=== PATIENT | female | born 1960 | race Caucasian/White ===

== ENCOUNTER → 2023-06-19 07:37 | Outpatient (REF) | payer BC, SELFPAY | LOC: WDC 07:37 | PROVIDERS: ATTENDING PHYSICIAN Family Medicine | DX: Z12.31 Encounter for screening mammogram for malignant neoplasm of breast (principal) | CPT/HCPCS: 77063; 77067 ==

== ENCOUNTER → 2023-07-10 08:13 | Outpatient (REF) | payer BC, SELFPAY | LOC: RAD 08:13 | PROVIDERS: ATTENDING PHYSICIAN Family Medicine | DX: Z78.0 Asymptomatic menopausal state (principal); Z13.820 Encounter for screening for osteoporosis | CPT/HCPCS: 77080 ==

== ENCOUNTER → 2023-09-18 07:04 | Outpatient (REF) | payer BC, SELFPAY ==
[2023-09-18 08:15] LABS: ALT (SGPT) 26 U/L (0-35); AST (SGOT) 35 U/L (14-36); Albumin 3.9 g/dl (3.5-5.0); Alkaline Phosphatase 76 U/L (38-126); Blood Urea Nitrogen 26 mg/dl (7-17); Calcium 9.8 mg/dl (8.4-10.2); Carbon Dioxide 28 mmol/L (22-30); Chloride 105 mmol/L (98-107); Glucose 89 mg/dl (70-99); Potassium 4.5 mmol/L (3.5-5.1); Sodium 138 mmol/L (135-145); Total Bilirubin 0.6 mg/dl (0.2-1.3); Total Cholesterol 189 mg/dl (50-199); Total Protein 6.7 g/dl (6.3-8.2); Triglyceride 44 mg/dl (10-149); Very Low Density Lipoprotein 8 mg/dl (0-30); eGFR > 60.00
[2023-09-18 08:29] LABS: HDL Cholesterol 118 mg/dl; LDL Cholesterol, Calculated 63 mg/dl
== END ==
LOC: REG 07:04
PROVIDERS: ATTENDING PHYSICIAN Family Medicine
DX: R73.9 Hyperglycemia, unspecified (principal); R73.09 Other abnormal glucose
CPT/HCPCS: 36415; 80053; 80061; 83036

== ENCOUNTER → 2023-09-23 13:45 | Outpatient (REF) | payer BC, SELFPAY | LOC: CPAP 13:45 | PROVIDERS: ATTENDING PHYSICIAN Nurse Practitioner Family | DX: Z12.4 Encounter for screening for malignant neoplasm of cervix (principal); Z11.51 Encounter for screening for human papillomavirus (HPV); Z01.419 Encounter for gynecological examination (general) (routine) without abnormal findings | CPT/HCPCS: 87624; G0123 ==

== ENCOUNTER → 2024-01-13 14:04 | Outpatient (REF) | payer BC, SELFPAY ==
[2024-01-19 02:41] LABS: HPV, High Risk Not Detected; HPV, High Risk Source Cervical
== END ==
LOC: CPAP 14:04
PROVIDERS: ATTENDING PHYSICIAN Nurse Practitioner Family
DX: Z01.419 Encounter for gynecological examination (general) (routine) without abnormal findings (principal)
CPT/HCPCS: 87624

== ENCOUNTER → 2024-03-12 07:32 | Outpatient (REF) | payer BC, SELFPAY ==
[2024-03-12 10:00] LABS: Urine Albumin Negative (Neg - Trace); Urine Bilirubin Negative (Negative); Urine Glucose Negative (Negative); Urine Ketone Trace (Negative); Urine Leukocyte Negative (Negative); Urine Nitrite Negative (Negative); Urine Occult Blood Negative (Negative); Urine Urobilinogen Negative (Neg - 1+)
[2024-03-12 10:01] LABS: Urine Character Clear (Clear); Urine Color Yellow
[2024-03-12 10:11] LABS: Hematocrit 41.3 % (37.0-47.0); Hemoglobin 13.8 g/dL (12.0-16.0); Mean Corp Hgb Conc. 33.4 g/dL (33.0-37.0); Mean Corpuscular Hgb 30.9 pg (27.0-31.0); Mean Corpuscular Volume 92.6 fL (81.0-99.0); Mean Platelet Volume 9.9 fL (7.4-10.4); Platelet Count 191 10^3/uL (130-400); Red Blood Cell Count 4.46 10^6/uL (4.20-5.40); Red Cell Dist. Width 12.1 % (11.5-14.5)
[2024-03-12 10:55] LABS: Erythrocyte Sed Rate 19 mm/hour (0-20)
[2024-03-12 11:26] LABS: Absolute Lymphocytes 0.9 10^3/uL (1.2-3.4); Absolute Monocytes 0.2 10^3/uL (0.1-0.6); Absolute Neutrophils 0.9 10^3/uL (1.4-6.5); Nucleated Red Blood Cells % 0 %
[2024-03-12 11:46] LABS: ALT (SGPT) 30 U/L (0-35); AST (SGOT) 34 U/L (14-36); Albumin 4.5 g/dl (3.5-5.0); Alkaline Phosphatase 81 U/L (38-126); Blood Urea Nitrogen 27 mg/dl (7-17); Calcium 9.7 mg/dl (8.4-10.2); Carbon Dioxide 27 mmol/L (22-30); Chloride 102 mmol/L (98-107); Glucose 81 mg/dl (70-99); Potassium 4.6 mmol/L (3.5-5.1); Sodium 140 mmol/L (135-145); Total Bilirubin 0.5 mg/dl (0.2-1.3); Total Cholesterol 236 mg/dl (50-199); Total Protein 7.4 g/dl (6.3-8.2); Triglyceride 48 mg/dl (10-149); Uric Acid 3.8 mg/dl (2.5-6.2); Very Low Density Lipoprotein 9 mg/dl (0-30); eGFR > 60.00
[2024-03-12 11:56] LABS: C-Reactive Protein < 5.00 mg/L (0.0-10.00)
[2024-03-12 12:03] LABS: HDL Cholesterol 133 mg/dl; LDL Cholesterol, Calculated 94 mg/dl
[2024-03-12 12:14] LABS: Free T4 0.89 ng/dl (0.78-2.19); Vitamin D, 25-OH*** 39.7 ng/mL (30-80)
[2024-03-12 12:18] LABS: Glycohemoglobin (HgbA1c) 5.4 % (4.0-5.6)
[2024-03-12 12:27] LABS: TSH 1.87 uIU/ml (0.47-4.68)
[2024-03-12 13:28] LABS: IgA 244 mg/dl (70-400); IgG 1318 mg/dl (700-1600); IgM 118 mg/dl (40-230)
[2024-03-12 19:52] LABS: Hepatitis B Surface Antigen Negative (Negative)
[2024-03-12 20:09] LABS: Hepatitis B Surface Antibody Positive
[2024-03-12 20:56] LABS: Hepatitis B Core Ab, IgM Negative (Negative)
[2024-03-13 09:46] LABS: CRP, Highly Sensitive < 0.34 mg/L
[2024-03-13 23:14] LABS: Apolipoprotein B 78 mg/dL (60-117)
[2024-03-14 00:55] LABS: ANA, IgG Reflex to HEp-2 None Detected (None Detected)
== END ==
LOC: REG 07:32
PROVIDERS: ATTENDING PHYSICIAN Family Medicine
DX: Z00.00 Encounter for general adult medical examination without abnormal findings (principal); M06.9 Rheumatoid arthritis, unspecified; K21.9 Gastro-esophageal reflux disease without esophagitis; R73.9 Hyperglycemia, unspecified; E55.9 Vitamin D deficiency, unspecified; Z11.59 Encounter for screening for other viral diseases; D72.819 Decreased white blood cell count, unspecified
CPT/HCPCS: 36415; 80053; 80061; 81003; 82172; 82306; 82784; 83036; 84439; 84443; 84550; 85025; 85652; 86038; 86140; 86141; 86430; 86705; 86706; 87340

== ENCOUNTER → 2024-05-04 06:47 | Outpatient (REF) | payer BC, SELFPAY ==
[2024-05-04 09:03] LABS: Mean Corp Hgb Conc. 33.3 g/dL (33.0-37.0); Mean Corpuscular Hgb 30.4 pg (27.0-31.0); Mean Corpuscular Volume 91.1 fL (81.0-99.0); Mean Platelet Volume 9.8 fL (7.4-10.4); Platelet Count 202 10^3/uL (130-400); Red Blood Cell Count 4.28 10^6/uL (4.20-5.40); Red Cell Dist. Width 12.1 % (11.5-14.5)
[2024-05-04 10:34] LABS: % Basophils 0.9 % (0-2); % Eosinophils 1.8 % (0-6); % Lymphocytes 45.8 % (20.5-51.1); % Monocytes 8.4 % (1.7-9.3); % Neutrophils 43.1 % (42.2-75.2); Absolute Monocytes 0.2 10^3/uL (0.1-0.6); Nucleated Red Blood Cells % 0 %; White Blood Cell Count 2.3 10^3/uL (4.8-10.8)
[2024-05-05 13:28] LABS: Lipoprotein a (Lp a) 8 mg/dL (<=29)
[2024-05-05 13:30] LABS: Apolipoprotein B 71 mg/dL (60-117)
== END ==
LOC: REG 06:47
PROVIDERS: ATTENDING PHYSICIAN Family Medicine
DX: K21.9 Gastro-esophageal reflux disease without esophagitis (principal); R73.9 Hyperglycemia, unspecified; R73.09 Other abnormal glucose
CPT/HCPCS: 36415; 82172; 83695; 85025

== ENCOUNTER 2025-01-25 18:40 | Emergency (ER) | payer BC, SELFPAY ==
[2025-01-25 18:49] VITALS: BP 124/65
[2025-01-25 19:31] LABS: Hematocrit 35.7 % (37.0-47.0); Hemoglobin 12.2 g/dL (12.0-16.0); Mean Corp Hgb Conc. 34.2 g/dL (33.0-37.0); Mean Corpuscular Volume 87.9 fL (81.0-99.0); Nucleated Red Blood Cells % 0 %; Platelet Count 144 10^3/uL (130-400); Red Cell Dist. Width 12.2 % (11.5-14.5)
[2025-01-25 19:46] LABS: ALT (SGPT) 47 U/L (0-35); AST (SGOT) 48 U/L (14-36); Albumin 3.8 g/dl (3.5-5.0); Alkaline Phosphatase 68 U/L (38-126); Blood Urea Nitrogen 25 mg/dl (7-17); Calcium 8.9 mg/dl (8.4-10.2); Carbon Dioxide 26 mmol/L (22-30); Chloride 103 mmol/L (98-107); Glucose 105 mg/dl (70-99); Potassium 4.1 mmol/L (3.5-5.1); Sodium 131 mmol/L (135-145); Total Protein 6.6 g/dl (6.3-8.2); eGFR > 60.00
[2025-01-25 20:22] VITALS: BMI 16.2
[2025-01-25] MEDS: VANCOCIN 200 IV (20:48)
--- NOTE | 2025-01-25 20:50 | ED.GENMED ---
History of Present Illness
<Boaz Castanon DO - Last Filed: 01/25/25 20:51>
General
Chief Complaint: Skin Problem
Source: patient
Time Seen by Provider: 01/25/25 18:49
<Alanna Rose NP - Last Filed: 01/26/25 19:18>
General
Exam Limitations: none
Nursing documentation reviewed up to this point in time: agreed with
History of Present Illness
History of Present Illness:
Patient states she was bit by unknown insect on . Bite to right medial ankle. No issues until Saturday when she developed worsening erythema. Today erythema continued to spread. Reports pain to ankle, fever. She was evaluated at but
advised to come to ED for eval.
Past History
<Boaz Castanon DO - Last Filed: 01/25/25 20:51>
Past History
ED Past Medical History: Other (hypoglycemia)
ED Past Surgical History:
Social History
Tobacco: Non-smoker
Alcohol: None
Drug: None
Personal:
Living: with family
Employment: Employed (RN at [employer])
Family History
Family History: Other (Noncontributory)
Review of Systems
<Alanna Rose [employer] - Last Filed: 01/26/25 19:18>
Review of Systems
Allergies reviewed?: Yes
All Other Systems: ROS reviewed and negative except as documented in HPI and ROS
Constitutional: Reports fever
Respiratory: Reports no symptoms
Cardiac: Reports no symptoms
ABD/GI: Reports no symptoms
Musculoskeletal: Reports joint pain (Pain to right ankle)
Skin: Reports other (erythema to right ankle)
Neurological: Reports no symptoms
Psychiatric: Reports no symptoms
Phy Exam
<Alanna Rose [employer] - Last Filed: 01/26/25 19:18>
General Physical Exam
General Presentation: well appearing and mild distress
General age: appears stated age
General Skin: warm and dry
General Habitus: normal
General Mental: alert
Musculoskeletal Exam
Musculoskeletal Exam: full ROM and neuro vasc intact
Skin Exam
Skin Exam: warm/dry and no rash
Psychiatric Exam
Psychiatric Exam: normal mood/affect
Course
<Boaz Castanon, DO - Last Filed: 01/25/25 20:51>
Orders/Labs/Results
Orders:
Orders
01/25/25 18:52
Ankle, Right 3 view CR [CR Ankle - Right Min 3 Views *] Urgent
Comment:
Reason For Exam: pain redness swelling
01/25/25 19:23
Complete Blood Count/With Diff Urgent
Comprehensive Metabolic Panel Urgent
Lactic Acid Urgent
01/25/25 20:27
Vancomycin 1 Gram/200 ml [Vancocin] 1 gram in 200 ml IV NOW
01/25/25 20:54
Lyme Progressive Urgent
Abnormal Lab Results
01/25/25
19:23
WBC 2.5 L 10^3/uL
(4.8-10.8)
RBC 4.06 L 10^6/uL
(4.20-5.40)
Hct 35.7 L %
(37.0-47.0)
Absolute Lymphs (auto) 0.5 L 10^3/uL
(1.2-3.4)
Monocytes % 11.4 H %
(1.7-9.3)
Sodium 131 L mmol/L
(135-145)
BUN 25 H mg/dl
(7-17)
Creatinine 0.5 L mg/dL
(0.6-1.0)
Glucose 105 H mg/dl
(70-99)
Lactic Acid 0.6 L mmol/L
(0.7-2.0)
AST 48 H U/L
(14-36)
ALT 47 H U/L
(0-35)
01/25/25 19:23
01/25/25 19:23
Vital Signs
Initial and Last Documented VS:
Initial Vital Signs
Temp Pulse Resp BP Pulse Ox
99.5 F 98 18 124/65 97
01/25/25 18:49 01/25/25 18:49 01/25/25 18:49 01/25/25 18:49 01/25/25 18:49
Last Documented Vital Signs
Temp Pulse Resp BP Pulse Ox
99.5 F 98 18 124/65 97
01/25/25 18:49 01/25/25 18:49 01/25/25 18:49 01/25/25 18:49 01/25/25 20:51
<Alanna Rose, [employer] - Last Filed: 01/26/25 19:18>
Orders/Labs/Results
Orders:
Orders
01/25/25 18:52
Ankle, Right 3 view CR [CR Ankle - Right Min 3 Views *] Urgent
Comment:
Reason For Exam: pain redness swelling
01/25/25 19:23
Complete Blood Count/With Diff Urgent
Comprehensive Metabolic Panel Urgent
Lactic Acid Urgent
01/25/25 20:27
Vancomycin 1 Gram/200 ml [Vancocin] 1 gram in 200 ml IV NOW
01/25/25 20:54
Lyme Progressive Urgent
Abnormal Lab Results
01/25/25
19:23
WBC 2.5 L 10^3/uL
(4.8-10.8)
RBC 4.06 L 10^6/uL
(4.20-5.40)
Hct 35.7 L %
(37.0-47.0)
Absolute Lymphs (auto) 0.5 L 10^3/uL
(1.2-3.4)
Monocytes % 11.4 H %
(1.7-9.3)
Sodium 131 L mmol/L
(135-145)
BUN 25 H mg/dl
(7-17)
Creatinine 0.5 L mg/dL
(0.6-1.0)
Glucose 105 H mg/dl
(70-99)
Lactic Acid 0.6 L mmol/L
(0.7-2.0)
AST 48 H U/L
(14-36)
ALT 47 H U/L
(0-35)
01/25/25 19:23
01/25/25 19:23
Vital Signs
Initial and Last Documented VS:
Initial Vital Signs
Temp Pulse Resp BP Pulse Ox
99.5 F 98 18 124/65 97
01/25/25 18:49 01/25/25 18:49 01/25/25 18:49 01/25/25 18:49 01/25/25 18:49
Last Documented Vital Signs
Temp Pulse Resp BP Pulse Ox
99.5 F 98 18 124/65 97
01/25/25 18:49 01/25/25 18:49 01/25/25 18:49 01/25/25 18:49 01/25/25 20:51
<Boaz Castanon DO - Last Filed: 01/25/25 20:51>
*Pulse Oximetry
SaO2: 97
Oxygen Mode of Delivery: Room air
<Alanna Rose [employer] - Last Filed: 01/26/25 19:18>
*Radiology
Radiology exam reviewed: radiology read reviewed
*Pulse Oximetry
Patient hypoxic: no
*Critical Care Note
Total Time (30-74mins, 75-104mins- exclusive of procedures): Not Applicable
<Alanna Rose NP - Last Filed: 01/26/25 19:18>
Update Note
Update Note:
Patient to ED with complaint of worsening erythema, swelling and pain to insect bite on right ankle. Today she developed a temp >101. She was referred to ED by after giving 1 dose of Keflex po. On arrival she is awake and alert. Temp 99.5.
Labs reviewed. WBC 2.5. SHe states she has been seen by hematology in the past for this without findings to explain this. SHe consistently runs at this level. Lactic 0.6. No drainage from terrell insect bite site. Surrounding erythema with mild
swelling. SHe has inked the borders of erythema [employer] and she will continue to monitor. She was given a dose of vanco in ED and will try a course of doxycycline. Lyme titer sent, results pending. Case discussed with Dr. Castanon who also evaluated
this patient. He is agreeable to plan. She is discharged home, given instructions on s/s to return to ED and she is agreeable toplan.
ED Attending Note
<Boaz Castanon DO - Last Filed: 01/25/25 20:51>
ED Attending Note
Patient seen and examined by attending physician: Yes
I performed the substantive portion of visit, reviewed & personally made and approve the management plan that is documented in note by myself or DARÍO.: Yes
ED Attending Note:
IV antibiotics x 1. Switch to doxycycline. Patient will watch and monitor symptoms closely and return for worsening symptoms. Check Lyme titer
-
Portions of this chart may have been created with voice recognition software.� Occasional wrong word or��sound alike� substitutions may have occurred due to the inherent limitations of voice recognition software.
Discharge Plan
Departure
Patient Disposition: Home (Routine Discharge)
Date of Disposition: 01/25/25
Time of Disposition: 22:03
Patient with high blood pressure during this ER visit?: No
Condition: Good
Covid-19: Not Applicable
Discharge Problem:
Cellulitis
Instructions: Cellulitis (Skin Infection), Adult (DC)
Prescriptions:
New
doxycycline hyclate 100 mg capsule
100 mg PO BID Qty: 20 0RF
No Action
Theragen Tablet
1 tab PO DAILY
Referrals:
Rao Terrazas MD [Family Provider, [facility]] - Follow up in 2-3 days
Stand Alone Forms: Return to Work
Activity Restrictions/Additional Instructions:
Return to the emergency department immediately for any changes in/worsening of your symptoms.
Interventions
Interventions:
*Risk Screen - Suicide Last Done: 01/25/25 18:42
*General Assessment Last Done: 01/25/25 19:30
*Neglect/Abuse Screening Last Done: 01/25/25 18:42
*ED- Fall Risk Assessment Last Done: 01/25/25 19:30
*ED COVID-19 Vaccine History Last Done: 01/25/25 22:09
*Nursing Disposition Last Done: 01/25/25 22:09
ED-Skin Assessment Last Done: 01/25/25 19:29
Discharge Date and Time
Discharge Date/Time: 01/25/25 22:10
Print Language: ESTONIAN
Skin Exam
<Alanna Rose NP - Last Filed: 01/26/25 19:18>
Bite
Right Ankle:
Type: insect/spider
Surrounding area around bite has: marked local erythema
Distal skin color and temperature: normal-warm & good color
Normal distal neurovascular exam: Yes
== END 2025-01-25 22:10 | disposition home or self-care (01) ==
LOC: EMR 18:40
PROVIDERS: Nurse Practitioner; EMERGENCY PHYSICIAN Emergency Medicine; FAMILY PHYSICIAN Family Medicine
DX: L03.115 Cellulitis of right lower limb (principal); W57.XXXA Bitten or stung by nonvenomous insect and other nonvenomous arthropods, initial encounter
CPT/HCPCS: 99284; 96374; 73610; 80053; 83605; 85025; 86618